=== PATIENT | male | born 1970 | race Caucasian/White ===

== ENCOUNTER 2017-01-26 17:45 | Inpatient (IN) | payer OTHER ==
--- NOTE | 2017-01-26 17:52 | PDOC ---
Rapid Medical Evaluation Time Seen by Provider: 01/26/17 17:48 Medical Evaluation: 01/26/17 17:49 I have performed a brief in-person evaluation of this patient. The patient presents with a chief complaint of: Chest pain w/ sob x several hrs. H/o HTN, HLD, [place] Pertinent physical exam findings: Appears pale and uncomfortable w/ what appears to be SVT to 208 on EKG I have ordered the following:Transferred immediately to main ED and EKG handed to Dr Gupta The patient will proceed to the ED for further evaluation. 01/26/17 17:56
[2017-01-26] MEDS ORDERED: ADENOSINE 6 MG/2 ML VIAL IVPUSH ONE (18:11)
--- NOTE | 2017-01-26 18:19 | PDOC ---
History of Present Illness - General History Source: Patient Exam Limitations: No Limitations <Dilma Mcintosh - Last Filed: 01/26/17 22:11> <Og Hernandez - Last Filed: 01/27/17 09:58> - General Chief Complaint: Chest Pain Stated Complaint: PALPITATIONS Time Seen by Provider: 01/26/17 17:48 - History of Present Illness Initial Comments: 01/26/17 22:12 "Patient is a 46 year old male with significant past medical history of CAD s/p stent 10 yrs ago, ?hx of pafib (not on any ac) who present to the ED with heart palpitations that began this evening. The patient reports running to catch a train with his son when his symptoms began. When he noticed his symptoms were persistent he subsequently checked his heart rate and noticed it to be fast so he decided to come to the ED. Patient denies any associated chest pain, shortness of breath, or dizziness.No recent illness, fevers/chills, diarrhea, melena, bpr. Pt notes giovanni the has been feeling fine the past few days and up until he was sprinting. he ontes he excercises regularly and always feels fine. Ctrs: Dr. Stepan Major Denies any drug use including stimulants +etoh abuse 2 glasses of wine daily" (Dilma Mcintosh) 01/27/17 09:57 above should read +etoh use - 2 glasses of wine daily not 'abuse' (Og Hernandez) Past History <Dilma Mcintosh - Last Filed: 01/26/17 22:11> - Past Medical History Cardiac Disorders: Yes (NE) COPD: No HTN: Yes Hypercholesterolemia: Yes - Suicide/Smoking/Psychosocial Hx Smoking History: Never smoked Information on smoking cessation initiated: No Hx Alcohol Use: No Drug/Substance Use Hx: No Substance Use Type: None <Og Hernandez - Last Filed: 01/27/17 09:58> - Past Medical History Allergies/Adverse Reactions: Allergies Allergy/AdvReac Type Severity Reaction Status Date / Time No Known Allergies Allergy Verified 01/26/17 17:51 Home Medications: Ambulatory Orders Aspirin [ASA -] 81 mg PO DAILY 01/26/17 Atorvastatin Ca [Lipitor] 40 mg PO DAILY 01/26/17 Enalapril Maleate 5 mg PO DAILY 01/26/17 Fluticasone/Salmeterol [Advair 250-50 Diskus] 1 each IH DAILY 01/26/17 Metoprolol Succinate [Toprol Xl -] 50 mg PO DAILY 01/26/17 [place]-3S/Dha/Epa/Fish Oil [Fish Oil 1,200 mg Softgel] 1 each PO DAILY 01/26/17 Review of Systems - Review of Systems All Other Systems: Reviewed and Negative <Dilma Mcintosh - Last Filed: 01/26/17 22:11> <Og Hernandez - Last Filed: 01/27/17 09:58> - Review of Systems Comments:: 01/26/17 22:13 "CONSTITUTIONAL: No reported: Fever, Chills, Diaphoresis, Generalized Weakness, Malaise, Loss of Appetite HEENT: No reported: Rhinorrhea, Nasal Congestion, Throat Pain, Throat Swelling, Difficulty Swallowing, Mouth Swelling, Ear Pain, Eye Pain, Visual Changes CARDIOVASCULAR: +Palpitations, Lightheadedness, No reported: Chest Pain, Syncope, Peripheral Edema RESPIRATORY: No reported: Cough, Shortness of Breath, SOB with Exertion, Orthopnea, Wheezing , Stridor, Hemoptysis GASTROINTESTINAL: No reported: Abdominal pain, Abdominal Distension, Nausea, Vomiting, Diarrhea, Constipation, Melena, Hematochezia GENITOURINARY: No reported: Dysuria, Frequency, Urgency, Hesitancy, Flank Pain, Genital Pain MUSCULOSKELETAL: No reported: Myalgia, Arthralgia, Joint Swelling, Back pain, Neck Pain SKIN: No reported: Rash, Itching, Pallor HEMEATOLOGIC/IMMUNOLOGIC: No reported: Easy Bleeding, Easy Bruising, Lymphadenopathy, Frequent infections ENDOCRINE: No reported: Unexplained Weight Gain, Unexplained Weight Loss, Heat Intolerance , Cold Intolerance NEUROLOGIC: No reported: Headache, Focal Weakness, Paresthesias, Vertigo, Lightheadedness, Unsteady Gait, Seizure, Mental Status Changes, Incontinence PSYCHIATRIC: No reported: Anxiety, Depression " (Dilma Mcintosh) *Physical Exam <Dilma Mcintosh - Last Filed: 01/26/17 22:11> <Og Hernandez - Last Filed: 01/27/17 09:58> - Vital Signs Last Vital Signs Temp Pulse Resp BP Pulse Ox 97.8 F 78 18 117/73 97 01/27/17 06:00 01/27/17 08:00 01/27/17 08:00 01/27/17 08:00 01/27/17 08:00 - Physical Exam Comments: 01/26/17 22:14 "GENERAL: The patient is awake, alert, and fully oriented, Nontoxic - in no acute distress. HEAD: Normocephalic, atraumatic. EYES: extraocular movements intact, sclera anicteric, conjunctiva clear. ENT: Normal voice, Moist mucous membranes. NECK: Normal range of motion, supple LUNGS: Breath sounds equal, clear to auscultation bilaterally. No wheezes, no rhonchi, no rales. HEART: Tachycardic with normal rhythm, without murmur, rub or gallop. ABDOMEN: Soft, nontender, normoactive bowel sounds. No guarding, no rebound.No CVA tenderness EXTREMITIES: Normal range of motion, no edema. No clubbing or cyanosis. No cords , erythema, or tenderness. NEUROLOGICAL: No facial assymetry, Normal speech, PSYCH: Normal mood, normal affect. SKIN: Warm, Dry, normal turgor, " (Dilma Mcintosh) Heart Score/ECG Review <Dilma Mcintosh - Last Filed: 01/26/17 22:11> <Og Hernandez - Last Filed: 01/27/17 09:58> - P and [place] Comment:: 01/26/17 18:42 EKG obtained at 17:51 Vent rate: 208bpm Wide QRS tachycardia Right bundle branch block, plus right ventricular hypertrophy Possible lateral infarct, age undetermined (Dilma Mcintosh) - ECG Impressions Comment:: 01/26/17 19:55 Twelve-lead EKG was performed and reviewed by me. ekg originaly performed at 17:51 wide complex tachycardia HR of 208 RBBB no old ekg for comparison Twelve-lead EKG was performed and reviewed by me. EKG performed at 1944 There is normal sinus rhythm with a normal rate. rate of 76 (Og Hernandez) ED Treatment Course - LABORATORY CBC & Chemistry Diagram: 01/26/17 18:00 01/26/17 18:00 <Dilma Mcintosh - Last Filed: 01/26/17 22:11> - LABORATORY CBC & Chemistry Diagram: 01/26/17 18:00 01/26/17 18:00 <Og Hernandez - Last Filed: 01/27/17 09:58> - ADDITIONAL ORDERS Additional order review: 01/26/17 18:00 RBC 4.79 MCV 92.0 MCHC 34.6 RDW 13.5 MPV 9.1 Neutrophils % 74.5 Lymphocytes % 17.3 Monocytes % 6.9 Eosinophils % 1.0 Basophils % 0.3 - Medications Given in the ED: ED Medications Discontinued Medications Generic Name Dose Route Start Last Admin Trade Name Domitila PRN Reason Stop Dose Admin Aspirin 325 mg 01/27/17 03:06 01/27/17 03:05 Ecotrin - PO 01/27/17 03:07 325 mg ONCE ONE Administration Heparin Sodium (Porcine) 5,000 unit 01/27/17 03:15 01/27/17 03:15 Heparin - IVPUSH 01/27/17 03:16 5,000 unit ONCE ONE Administration Amiodarone HCl 150 mg/ 100 mls @ 618 mls/hr 01/26/17 18:29 01/26/17 18:39 Dextrose IVPB 01/26/17 18:38 618 mls/hr ONCE ONE Administration Protocol Amiodarone HCl 150 mg/ 100 mls @ 618 mls/hr 01/26/17 18:45 01/26/17 18:55 Dextrose IVPB 01/26/17 18:54 618 mls/hr ONCE ONE Administration Protocol Lidocaine 2,000 mg in 500 mls @ 15 mls/hr 01/26/17 20:00 01/26/17 22:21 Xylocaine 0.4% Premix Ivpb - IV Not Given TITR BOB Protocol 1 MG/MIN Lidocaine HCl 100 mg 01/26/17 19:46 01/26/17 19:47 Xylocaine 2% INF 01/26/17 19:47 100 mg NOW ONE Administration Medical Decision Making <Dilma Mcintosh - Last Filed: 01/26/17 22:11> <Og Hernandez - Last Filed: 01/27/17 09:58> - Medical Decision Making 01/26/17 18:30 6:05pm Phone call placed to Dr. Stepan Major's answering service, awaiting call back. 6:08pm Call returned by Dr. Cortes, Dr. Major's associate. Case was discussed. ( [email or web address]) 01/26/17 18:48 46y M hx of CAD w stent 10 years ago, present with palptiations w/o chest pain, wsa sprinting to the train station and was felt palpitations/lightheaded took his HR at home and was elevated and would not go down. pt denies any cp, sob, diaprehosis, leg swelling. was fine prior to running to the train station ekg shows vt vs svt w abberency but in light of CAD and risk of structural heart disease/scarring higher suspicion of VT discussed with dr. corets who is covering for dr. quiroga (his track man) she does not have access to his records - i talked to dr. daniel (track man) who agrees treating as VT and agrees w/ amiodarone boluses and amio drip. pts mentating normally bp is stable (normal) no cp/diarpehosis pt has a zoll with defibrillator pads on his chest incase we need defibrillation 01/26/17 19:47 no response to 2 boluses of amio 150 and amio gtt d/w dr. daniel who recommends lidocaine - pt given lido with breaking of vt into what apepars to be NSR on monitor and improvement of his palptiations/lighheadedness. anticipate icu admission labs reviewed unremarkble trop neg x 1 01/26/17 19:54 repeat ekg is NSR no signs of AMI on ekg 01/26/17 21:[address] leon (hospitalist) agree with admission to ICU with lido gtt pt currently asypmtomatic Case discussed in detail with admitting physician including history, physical exam and ancillary studies. Admitting physician has assumed care for the patient, will follow all pending diagnostics and will complete the evaluation and treatment. CRITICAL CARE DOCUMENTATION: I spent ~110 minutes of Critical Care time, excluding separately billable procedures, involving high complexity decision making to assess, manipulate and support vital system function(s) to treat single or multiple vital organ system failure and/or to prevent further life threatening deterioration of the patient' s condition. (Og Hernandez) *DC/Admit/Observation/Transfer <Dilma Mcintosh - Last Filed: 01/26/17 22:11> - Discharge Dispostion Admit: Yes <Og Hernandez - Last Filed: 01/27/17 09:58> Diagnosis at time of Disposition: Ventricular tachycardia - Discharge Dispostion Condition at time of disposition: Critical - Attestations Scribe Attestion: 01/26/17 18:32 Documentation prepared by Dilma Mcintosh, acting as medical affairs specialist for Og Hernandez MD. (Dilma Mcintosh)
[2017-01-26] MEDS ORDERED: AMIODARONE HCL INJECTION 150 MG in DEXTROSE 5%-WATER - 97 ML IVPB ONE ×2 (18:29→18:45)
[2017-01-26 18:30] LABS: BASOPHIL 0.3 % (0-2.0); MCH 31.9 pg (25.7-33.7); MCHC 34.6 g/dl (32.0-35.9); MEAN PLT VOLUME 9.1 fl (7.5-11.1); NEUTROPHILS 74.5 % (42.8-82.8); PLATELET COUNT 225 K/MM3 (134-434); RDW 13.5 % (11.9-15.9); WHITE BLOOD COUNT 8.6 K/mm3 (4.0-10.0)
[2017-01-26] MEDS ORDERED: AMIODARONE HCL 150 MG/3 ML VIAL ONE ×4 (18:30→21:12)
[2017-01-26 18:46] LABS: INR 1.09 (0.82-1.09); PROTHROMBIN TIME (PATIENT) 12.3 SEC (9.98-11.88)
[2017-01-26 18:57] LABS: ALBUMIN 3.9 g/dl (3.4-5.0); ANION GAP 7 (8-16); BILIRUBIN,TOTAL 0.8 mg/dL (0.2-1.0); CALCIUM 8.8 mg/dL (8.5-10.1); CO2 29 mmol/L (21-32); CREATININE 0.9 mg/dL (0.7-1.3); GLUCOSE,RANDOM 129 mg/dL (74-106); SGOT/AST 24 U/L (15-37); SGPT/ALT 66 U/L (12-78); TOT PROT 7.1 g/dl (6.4-8.2)
[2017-01-26 18:59] LABS: ALK PHOS 74 U/L (45-117); CPK 132 IU/L (39-308); TROPONIN I 0.05 ng/ml (0.00-0.05)
[2017-01-26] MEDS: AMIODARONE HCL INJECTION 450 MG in DEXTROSE 5%-WATER - 241 ML IVPB SCH (19:09)
[2017-01-26] MEDS ORDERED: LIDOCAINE 0.4%/D5W IVPB 250ML BAG IVPB ONE (19:25)
[2017-01-26] MEDS ORDERED: RAPID SEQUENCE INTUBATION KIT NR ONE (19:29)
[2017-01-26] MEDS ORDERED: LIDOCAINE HCL 2% (50ML VIAL) INF ONE (19:46)
[2017-01-26] MEDS ORDERED: LIDOCAINE 0.4% PREMIX IVPB 2,000 MG/500 ML INFUS..BTL IV SCH (20:00)
[2017-01-26] MEDS ORDERED: LIDOCAINE 0.4% PREMIX IVPB 2,000 MG/500 ML INFUS..BTL ONE (20:40)
[2017-01-26] MEDS ORDERED: MUPIROCIN 2% TOPICAL OINTMENT FOR DECOLONIZATION NS SCH (22:00)
[2017-01-26] MEDS ORDERED: CHLORHEXIDINE GLUCONATE 4% CLEANSER FOR DECOLONIZATION TP SCH (22:00)
--- NOTE | 2017-01-26 22:02 | HP ---
CHIEF COMPLAINT: palpitations PCP: Dr. Oneill part of [facility] practice [phone] HISTORY OF PRESENT ILLNESS: 46 yr old man with hx of [place], HLD, presents to the ED due to persistent palpitations and not feeling well since 4pm Sunday afternoon. He and his son watched a game in the city and ran several [place]. During the 45 minute train ride back to his home he felt like his tachycardia from the running did not cease, once at home at 4:45 he continued to generalized malaise and presented to the ED at 5pm where he was found to be in V -tach. Prior to running for the train he was in his usual state of health. 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 earlier this year, in [place], he had an episode of Afib for which he under a nuclear test - told everything was normal, and had a stress echo in June 2016 which showed the known scar defect but to new areas of hypokinesis. ER course was notable for: (1) amiodarone [id number] (2)lidocaine (3) amiodarone drip Recent Travel: went to [place] 2 months ago PAST MEDICAL HISTORY: [place] at age 36 HLD PAST SURGICAL HISTORY: denies Social History: eats a vegetarian diet with fish and dairy Smoking:denies Alcohol:socially Drugs: denies Family History: family history of hyperlipidemia, denies famiyl hx of early NJ or CVA Allergies was allergic to cats 10 yrs ago, has occasional seasonal allergies that improve with advair No Known Allergies Allergy (Verified 01/26/17 17:51) HOME MEDICATIONS: Home Medications Medication Instructions Recorded Aspirin [ASA -] 81 mg PO DAILY 01/26/17 Atorvastatin Ca [Lipitor] 40 mg PO DAILY 01/26/17 Enalapril Maleate 5 mg PO DAILY 01/26/17 Fluticasone/Salmeterol [Advair 1 each IH DAILY 01/26/17 250-50 Diskus] Metoprolol Tartrate 50 mg PO DAILY 01/26/17 [place]-3S/Dha/Epa/Fish Oil [Fish 1 each PO DAILY 01/26/17 Oil 1,200 mg Softgel] REVIEW OF SYSTEMS CONSTITUTIONAL: Absent: fever, chills, diaphoresis, generalized weakness, malaise, loss of appetite, weight change HEENT: Absent: rhinorrhea, nasal congestion, throat pain, throat swelling, difficulty swallowing, mouth swelling, eye pain, visual changes CARDIOVASCULAR: Present: palpitations Absent: chest pain, syncope, irregular heart rate, lightheadedness, peripheral edema RESPIRATORY: Absent: cough, shortness of breath, dyspnea with exertion, orthopnea, wheezing, stridor, hemoptysis GASTROINTESTINAL: Absent: abdominal pain, abdominal distension, nausea, vomiting, diarrhea, constipation, melena, hematochezia GENITOURINARY: Absent: dysuria, frequency, urgency, hesitancy, hematuria, flank pain, genital pain MUSCULOSKELETAL: Absent: myalgia, arthralgia, joint swelling, back pain, neck pain SKIN: Absent: rash, itching, pallor HEMATOLOGIC/IMMUNOLOGIC: Absent: easy bleeding, easy bruising, lymphadenopathy, frequent infections ENDOCRINE: Absent: unexplained weight gain, unexplained weight loss, heat intolerance, cold intolerance NEUROLOGIC: Absent: headache, focal weakness or paresthesias, dizziness, unsteady gait, seizure, mental status changes, bladder or bowel incontinence PHYSICAL EXAMINATION Vital Signs - 24 hr 01/26/17 01/26/17 01/26/17 17:52 18:19 19:09 Temperature 0 F L Pulse Rate 208 H Pulse Rate [ 180 H Apical] Respiratory 24 18 Rate Blood Pressure 0/0 Blood Pressure 92/70 [Right Arm] O2 Sat by Pulse 0 L 100 100 Oximetry (%) 01/26/17 01/26/17 01/26/17 19:48 20:49 21:41 Temperature Pulse Rate Pulse Rate [ 75 75 74 Apical] Respiratory 14 18 Rate Blood Pressure Blood Pressure 89/69 113/94 120/90 [Right Arm] O2 Sat by Pulse 99 99 99 Oximetry (%) GENERAL: Awake, alert, and fully oriented, in no acute distress. HEAD: Normal with no signs of trauma. EYES: Pupils equal, round and reactive to light, extraocular movements intact, sclera anicteric, conjunctiva clear. No lid lag. EARS, NOSE, THROAT: Ears normal, nares patent, oropharynx clear without exudates. Moist mucous membranes. NECK: Normal range of motion, supple without lymphadenopathy, JVD, or masses. LUNGS: Breath sounds equal, clear to auscultation bilaterally. No wheezes, and no crackles. No accessory muscle use. HEART: Regular rate and rhythm, normal S1 and S2 without murmur, rub or gallop. ABDOMEN: Soft, nontender, not distended, normoactive bowel sounds, no guarding, no rebound, no masses. No hepatomegaly or splenomegaly. MUSCULOSKELETAL: Normal range of motion at all joints. No bony deformities or tenderness. No CVA tenderness. UPPER EXTREMITIES: 2+ radial pulses, warm, well-perfused. No cyanosis. No clubbing. No peripheral edema. LOWER EXTREMITIES: 2+ dp pulses, warm, well-perfused. No calf tenderness. No peripheral edema. NEUROLOGICAL: Cranial nerves II-XII intact. Normal speech. Normal gait. facial symmetry, 5/5 in biceps/triceps/shoulder shrug,hip extension, knee extension/ flexion, dorsi-and planter flexion b/l. PSYCHIATRIC: Cooperative. Good eye contact. Appropriate mood and affect. SKIN: Warm, dry, normal turgor, no rashes or lesions noted, normal capillary refill. patch of dry scaly skin with mild erythema centrally in posterior ankle of right foot. Laboratory Results - last 24 hr 01/26/17 01/26/17 01/26/17 18:00 18:00 18:00 WBC 8.6 RBC 4.79 Hgb 15.3 Hct 44.1 MCV 92.0 MCH 31.9 MCHC 34.6 RDW 13.5 Plt Count 225 MPV 9.1 Neutrophils % 74.5 Lymphocytes % 17.3 Monocytes % 6.9 Eosinophils % 1.0 Basophils % 0.3 PT with INR INR Sodium 140 Potassium 4.4 Chloride 104 Carbon Dioxide 29 Anion Gap 7 L BUN 19 H Creatinine 0.9 Creat Clearance w eGFR > 60 Random Glucose 129 H Calcium 8.8 Magnesium Total Bilirubin 0.8 AST 24 ALT 66 Alkaline Phosphatase 74 Creatine Kinase 132 Troponin I 0.05 B-Natriuretic Peptide 631.69 H Total Protein 7.1 Albumin 3.9 TSH 01/26/17 01/26/17 01/26/17 18:00 18:00 18:00 WBC RBC Hgb Hct MCV MCH MCHC RDW Plt Count MPV Neutrophils % Lymphocytes % Monocytes % Eosinophils % Basophils % PT with INR 12.30 H INR 1.09 Sodium Potassium Chloride Carbon Dioxide Anion Gap BUN Creatinine Creat Clearance w eGFR Random Glucose Calcium Magnesium 2.0 Total Bilirubin AST ALT Alkaline Phosphatase Creatine Kinase Troponin I B-Natriuretic Peptide Total Protein Albumin TSH 2.25 ASSESSMENT/PLAN: 46 yr old man with hx of [place] presents with palpitations found to be in V-tach admitted to the ICU for further management. #Ventricular tachycardia - due to arterial occlusion vs eletrical dysfunction due to previous [place] scar, TSH wnl, unlikely to be from thyroid dysfunction, lipid panel, hemoglob A1C to r/o DM or uncontrolled HLD causing re-occlusion - ICU monitoring with defibrillator pads in place with continous cardiac monitoring - amiodarone 0.5/kg/hr - increase home medication metoprolol from 50mg to 75mg for further rate controlled - trend troponins, mg, phos - Dr. Melara consulted for cardiology, case discussed - patient will be re- evaluated for possible transfer to [facility] in the morning, given elevated troponins and new st-changes in lateral leads which could be from the v-tach episode or possible new [place], pt was placed on heparin drip + ASA overnight. 's service called to update. #HLD - 40mg po daily atrovastatin #HTN - enalipril 5mg po daily #diet:vegetarian #DVT: heparin drip Visit type - Emergency Visit Emergency Visit: Yes ED Registration Date: 01/26/17 Care time: The patient presented to the Emergency Department on the above date and was hospitalized for further evaluation of their emergent condition. - New Patient This patient is new to me today: Yes Date on this admission: 01/26/17 - Critical Care Critical Care patient: Yes Total Critical Care Time (in minutes): 40 Critical Care Statement: The care of this patient involved high complexity decision making to prevent further life threatening deterioration of the patient 's condition and/or to evaluate & treat vital organ system(s) failure or risk of failure.
--- NOTE | 2017-01-26 23:14 | PN ---
Teaching Attending Note Name of Resident: Willis Crouch ATTENDING PHYSICIAN STATEMENT I saw and evaluated the patient. I reviewed the resident's note and discussed the case with the resident. I agree with the resident's findings and plan as documented. SUBJECTIVE: OBJECTIVE: aaox3 s1 and S2 rrr no edema lungs CTA abdomen soft non-tender ASSESSMENT AND PLAN: this is a 46 y/o male with extensive hx of cardiac disease with a stent placed at the age of 36, family history of dyslipdemia, and HTN, presented to the hospital complaining of palpiation, patient stated that he felt the palpitations after he left a game in the city, after he sprinted to get the train but kept on having the palpitations until he got home roughly an hour later. the palitations didnt resolve and the patient had to come to the hospital. the patient stated that he had history of scaring in the heart that is according to his steam setter. patient denied any chest pain, associated with his symptoms. he was doing well until today. ECG showed wide complex ventricular tachycardia with AV dissociation pt received 300mg Aiodarone that didnt break the tachycardia then he got 100mg of IV lidocaine that eventually terminated the tachycardia. plan: - admit patient to the ICU - start the patient on amiodarone drip at 0.5mg/kg/hr (according to cardiology) - c/w statin - increase metoprolol succinate xl to 75mg daily - cardiology will follow up with the patient in the morning for possible transfer to a different hospital - keep patient on defibrilator pads
[2017-01-27 02:07] VITALS: BMI 67.8
[2017-01-27 02:19] LABS: TROPONIN I 2.79 ng/ml (0.00-0.05)
--- NOTE | 2017-01-27 02:39 | CONSULT ---
Consult - text type - Consultation Consultation Note: PULM/CCM Pt seen and examined in ICU Consult Note CC: palpitations HPI: 46 y/o man with hx of CAD (single stent placed ~10 yrs ago, episode of afib in Mar/Apr of this year w/o intervention, reassuring treadmill stress and nuclear study in May) who today presents to hospital with wide complex tachycardia. Pt was in [place] and feeling well when today he abruptly ran to catch a train adn then after felt fatigue and elevated heart rate which didnt improve with rest prompting coming to hospital. He did not loose consciousness, have clear chest pain, shortness of breath, or dizziness. In ED pt was afebrile , normotensive, tachy to 200, EKG with wide complex VT vs SVT with aberrancy. He was not in acute distress. He was bolused amiodarone without clear affect. He was then given 100mg of lidocaine with conversion to NSR. He was started on an amio gtt. CBC and CMP were unrevealing, initial troponin was negative, BNP was 600. Pt transferred to ICU on amio gtt. Repeat trop was 2.7, CKMB 23, CI 10. EKG on arrival to ICU, without acute MERVIN, but with ? qWave II, III, AVF, TW flattening V5 and 6 ( we have no previous EKG for comparison) Pt relates some chest heaviness but no chest pain. VS stable. Cardiology was contacted, call out to Dr Melara being done by hospitalist, awaiting recs (3am) Asa 325 given, Hep bolus and gtt started. 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, near daily ETOH, no tob Home Medications Medication Instructions Recorded Aspirin [ASA -] 81 mg PO DAILY 01/26/17 Atorvastatin Ca [Lipitor] 40 mg PO DAILY 01/26/17 Enalapril Maleate 5 mg PO DAILY 01/26/17 Fluticasone/Salmeterol [Advair 1 each IH DAILY 01/26/17 250-50 Diskus] Metoprolol Succinate [Toprol Xl -] 50 mg PO DAILY 01/26/17 [place]-3S/Dha/Epa/Fish Oil [Fish 1 each PO DAILY 01/26/17 Oil 1,200 mg Softgel] Active Medications Atorvastatin Calcium (Lipitor -) 40 mg PO DAILY [facility] Chlorhexidine Gluconate (Hibiclens For Decolonization -) 1 applic TP HS [facility] Enalapril Maleate (Vasotec -) 5 mg PO DAILY [facility] Heparin Sodium (Porcine) (Heparin -) 1,000 unit IVPUSH PRN PRN PRN Reason: Heparin Heparin Sodium (Porcine) (Heparin -) 5,000 unit IVPUSH PRN PRN PRN Reason: Heparin Amiodarone HCl 450 mg/ (Dextrose) 250 mls @ 16.66 mls/hr IVPB TITR BOB; 0.5 MG/ MIN PRN Reason: Protocol Last Titration: 01/26/17 21:20 Dose: 0.5 mg/min, 16.66 mls/hr Heparin Sodium/Dextrose (Heparin Infusion -) 25,000 units in 500 mls @ 20 mls/ hr IVPB TITR BOB; 1,000 UNITS/HR PRN Reason: Protocol Influenza Virus Vaccine Quadrival (Flulaval Quad [id number]) 60 mcg IM .ONCE ONE Stop: 01/27/17 09:01 Metoprolol Succinate (Toprol Xl -) 75 mg PO DAILY [facility] Mupirocin (Bactroban Ointment (For Decolonization) -) 1 applic NS BID [facility] Stop: 02/01/17 09:59 Pneumococcal Polyvalent Vaccine (Pneumovax -) 0.5 ml IM .ONCE ONE Stop: 01/27/17 09:01 Vital Signs Temp 0 F L 01/26/17 17:52 Pulse 70 01/26/17 23:50 Resp 15 01/26/17 23:50 BP 121/91 01/26/17 23:50 Pulse Ox 100 01/26/17 23:50 Intake & Output 01/26/17 01/26/17 01/27/17 11:59 23:59 11:59 Weight 202.3 kg Other: Voiding Method Toilet Height 5 ft 8 in Body Mass Index (BMI) 67.8 Weight Measurement Method Built in [facility] Weight Measurement Method Est/Stated by Patient CBCD WBC 8.6 K/mm3 (4.0-10.0) 01/26/17 18:00 RBC 4.79 M/mm3 (4.00-5.60) 01/26/17 18:00 Hgb 15.3 GM/dL (11.7-16.9) 01/26/17 18:00 Hct 44.1 % (35.4-49) 01/26/17 18:00 MCV 92.0 fl (80-96) 01/26/17 18:00 MCHC 34.6 g/dl (32.0-35.9) 01/26/17 18:00 RDW 13.5 % (11.9-15.9) 01/26/17 18:00 Plt Count 225 K/MM3 (134-434) 01/26/17 18:00 MPV 9.1 fl (7.5-11.1) 01/26/17 18:00 CMP Sodium 140 mmol/L (136-145) 01/26/17 18:00 Potassium 4.4 mmol/L (3.5-5.1) 01/26/17 18:00 Chloride 104 mmol/L (98-107) 01/26/17 18:00 Carbon Dioxide 29 mmol/L (21-32) 01/26/17 18:00 Anion Gap 7 (8-16) L 01/26/17 18:00 BUN 19 mg/dL (7-18) H 01/26/17 18:00 Creatinine 0.9 mg/dL (0.7-1.3) 01/26/17 18:00 Creat Clearance w eGFR > 60 (>60) 01/26/17 18:00 Calcium 8.8 mg/dL (8.5-10.1) 01/26/17 18:00 Total Bilirubin 0.8 mg/dL (0.2-1.0) 01/26/17 18:00 AST 24 U/L (15-37) 01/26/17 18:00 ALT 66 U/L (12-78) 01/26/17 18:00 Alkaline Phosphatase 74 U/L (45-117) 01/26/17 18:00 Total Protein 7.1 g/dl (6.4-8.2) 01/26/17 18:00 Albumin 3.9 g/dl (3.4-5.0) 01/26/17 18:00 Troponin, BNP 01/26/17 01/26/17 01/27/17 18:00 18:00 01:14 Troponin I 0.05 2.79 H* D B-Natriuretic Peptide 631.69 H PE: Vital Signs Temp 0 F L 11/24/17 17:52 Pulse 70 01/26/17 23:50 Resp 15 01/26/17 23:50 BP 121/91 01/26/17 23:50 Pulse Ox 100 01/26/17 23:50 Intake & Output 01/26/17 01/26/17 01/27/17 11:59 23:59 11:59 Weight 202.3 kg Other: Voiding Method Toilet Height 5 ft 8 in Body Mass Index (BMI) 67.8 Weight Measurement Method Built in [facility] Weight Measurement Method Est/Stated by Patient EKG reviewed as above: inital VT vs SVT with aberrancy, now NSR with possible new qWave II,III,AVF and tw flattening in lateral CXR: clear, no infiltrate. Gen: awake, alert, anxious, no distress HEENT: p/w/d, no diaphoresis, no jvd, PERRL, EOMI PULM: Clear, no wheezes, no distress CV: RRR, no m/r/g, regular s1s2, non-displaced PMI ABD: soft, NT, ND, + BS EXT: w/w/p, no edema, 2+ pulses Neuro: non-focal A/ 46 y/o man with hx of CAD now with ACS w/ + trop, elevated BNP, wide complex tachycardia now resolved P/ -cardiology following, recs appreciated, likely cardiac cath being coordinated. -asa load with 325 -therapeutic heparin gtt -serial troponin and EKG -TTE -cont statin and BB therapy Suggest transfer for cardiac cath Samson Phillips ACNP [id number]
[2017-01-27] MEDS ORDERED: HEPARIN NA (PORCINE) 5,000 UNITS/ML 1ML VIAL IVPUSH PRN ×2 (03:04)
[2017-01-27] MEDS ORDERED: ASPIRIN 325 MG ENTERIC COATED TABLET (FP) PO ONE (03:06)
[2017-01-27] MEDS ORDERED: HEPARIN - 25,000 UNIT in SODIUM CHLORIDE 495 ML IV SCH (03:15)
[2017-01-27] MEDS ORDERED: HEPARIN NA (PORCINE) 5,000 UNITS/ML 1ML VIAL IVPUSH ONE (03:15)
[2017-01-27] MEDS ORDERED: HEPARIN INFUSION - 25,000 UNITS/500 ML INFUS.BAG IVPB SCH (03:15)
[2017-01-27] MEDS ORDERED: ASPIRIN COATED 81 MG TABLET.EC ONE (03:22)
[2017-01-27 06:52] LABS: INR 1.16 (0.82-1.09); PROTHROMBIN TIME (PATIENT) 13.1 SEC (9.98-11.88)
[2017-01-27 06:53] LABS: CHOLESTEROL 128 mg/dL (50-200)
[2017-01-27 07:02] LABS: PHOSPHOROUS 3.7 mg/dL (2.5-4.9)
[2017-01-27 07:19] LABS: TROPONIN I 4.28 ng/ml (0.00-0.05)
--- NOTE | 2017-01-27 07:55 | PN ---
Physical Exam: SUBJECTIVE: Patient seen and examined Patient is feeling better with no further chest pain. Continues on Amio drip. States that he has one stent, 10 yrs ago with Fhx of CAD. OBJECTIVE: Vital Signs Temperature 97.8 F 01/27/17 06:00 Pulse Rate 67 01/27/17 06:00 Respiratory Rate 18 01/27/17 06:00 Blood Pressure 119/85 01/27/17 06:00 O2 Sat by Pulse Oximetry (%) 100 01/26/17 23:50 GENERAL: The patient is awake, alert, and fully oriented, in no acute distress.lying in bed comfortably, slightly anxious. HEAD: Normal with no signs of trauma. EYES: PERRL, extraocular movements intact, sclera anicteric, conjunctiva clear. No ptosis. ENT: Ears normal, nares patent, oropharynx clear without exudates, moist mucous membranes. NECK: Trachea midline, full range of motion, supple. LUNGS: Breath sounds equal, clear to auscultation bilaterally, no wheezes, no crackles, no accessory muscle use. HEART: Regular rate and rhythm, S1, S2 without murmur, rub or gallop. ABDOMEN: Soft, nontender, nondistended, normoactive bowel sounds, no guarding, no rebound, no hepatosplenomegaly, no masses. EXTREMITIES: 2+ pulses, warm, well-perfused, no edema. NEUROLOGICAL: Cranial nerves II through XII grossly intact. Normal speech, gait not observed. PSYCH: Normal mood, normal affect. SKIN: Warm, dry, normal turgor, no rashes or lesions noted CBCD WBC 8.6 K/mm3 (4.0-10.0) 01/26/17 18:00 RBC 4.79 M/mm3 (4.00-5.60) 01/26/17 18:00 Hgb 15.3 GM/dL (11.7-16.9) 01/26/17 18:00 Hct 44.1 % (35.4-49) 01/26/17 18:00 MCV 92.0 fl (80-96) 01/26/17 18:00 MCHC 34.6 g/dl (32.0-35.9) 01/26/17 18:00 RDW 13.5 % (11.9-15.9) 01/26/17 18:00 Plt Count 225 K/MM3 (134-434) 01/26/17 18:00 MPV 9.1 fl (7.5-11.1) 01/26/17 18:00 CMP Sodium 140 mmol/L (136-145) 01/26/17 18:00 Potassium 4.4 mmol/L (3.5-5.1) 01/26/17 18:00 Chloride 104 mmol/L (98-107) 01/26/17 18:00 Carbon Dioxide 29 mmol/L (21-32) 01/26/17 18:00 Anion Gap 7 (8-16) L 01/26/17 18:00 BUN 19 mg/dL (7-18) H 01/26/17 18:00 Creatinine 0.9 mg/dL (0.7-1.3) 01/26/17 18:00 Creat Clearance w eGFR > 60 (>60) 01/26/17 18:00 Random Glucose 129 mg/dL (74-106) H 01/26/17 18:00 Calcium 8.8 mg/dL (8.5-10.1) 01/26/17 18:00 Total Bilirubin 0.8 mg/dL (0.2-1.0) 01/26/17 18:00 AST 24 U/L (15-37) 01/26/17 18:00 ALT 66 U/L (12-78) 01/26/17 18:00 Alkaline Phosphatase 74 U/L (45-117) 01/26/17 18:00 Total Protein 7.1 g/dl (6.4-8.2) 01/26/17 18:00 Albumin 3.9 g/dl (3.4-5.0) 01/26/17 18:00 CARDIAC ENZYMES Creatine Kinase 266 IU/L (39-308) 01/27/17 05:05 Troponin I 4.28 ng/ml (0.00-0.05) H* D 01/27/17 05:05 Current Medications Generic Name Dose Route Start Last Admin Trade Name Freq PRN Reason Stop Dose Admin Atorvastatin Calcium 40 mg 01/27/17 10:00 Lipitor - PO DAILY [facility] Chlorhexidine Gluconate 1 applic 01/26/17 22:00 01/27/17 05:49 Hibiclens For Decolonization - TP Not Given HS [facility] Enalapril Maleate 5 mg 01/27/17 10:00 Vasotec - PO DAILY [facility] Heparin Sodium (Porcine) 1,000 unit 01/27/17 03:04 Heparin - IVPUSH PRN PRN Heparin Heparin Sodium (Porcine) 5,000 unit 01/27/17 03:04 Heparin - IVPUSH PRN PRN Heparin Amiodarone HCl 450 mg/ 250 mls @ 16.66 mls/hr 01/26/17 19:00 01/26/17 21:20 Dextrose IVPB 0.5 mg/min TITR BOB 16.66 mls/hr Protocol Titration 0.5 MG/MIN Heparin Sodium/Dextrose 25,000 units in 500 mls @ 20 mls/hr 01/27/17 03:15 03:15 Heparin Infusion - IVPB 1,000 units/hr TITR BOB 20 mls/hr Protocol Administration 1,000 UNITS/HR Influenza Virus Vaccine Quadrival 60 mcg 01/27/17 09:00 Flulaval Quad [id number] IM 01/27/17 09:01 .ONCE ONE Metoprolol Succinate 75 mg 01/27/17 10:00 Toprol Xl - PO DAILY [facility] Mupirocin 1 applic 01/27/17 10:00 Bactroban Ointment (For Decolonization) - NS 02/01/17 09:59 BID [facility] Pneumococcal Polyvalent Vaccine 0.5 ml 01/27/17 09:00 Pneumovax - IM 01/27/17 09:01 .ONCE ONE Home Medications Medication Instructions Recorded Aspirin [ASA -] 81 mg PO DAILY 01/26/17 Atorvastatin Ca [Lipitor] 40 mg PO DAILY 01/26/17 Enalapril Maleate 5 mg PO DAILY 01/26/17 Fluticasone/Salmeterol [Advair 1 each IH DAILY 01/26/17 250-50 Diskus] Metoprolol Succinate [Toprol Xl -] 50 mg PO DAILY 01/26/17 [place]-3S/Dha/Epa/Fish Oil [Fish 1 each PO DAILY 01/26/17 Oil 1,200 mg Softgel] CXR: No acute pathology ASSESSMENT AND PLAN: Patient is a 46 y/o male with extensive cardiac hx s/p stent placement at the age of 36, family history of dyslipdemia, and HTN, presented to the hospital complaining of having palpitation. Patient stated that he felt the palpitations after he left a game in the city and continued to have palpitations, came to ED for further treatment and evaluation.Patient was given Amiodarone 300mg without any resolution of the VT, then patient received 100mg of IV lidocaine that eventually terminated the tachycardia. Presented with ECG showed wide complex ventricular tachycardia with AV dissociation, repeat EKG NSR. # s/p Wide complex Tachycardia: in ICU , on amiodarone drip at 0.5mg/kg/hr ( according to cardiology) , continue statin , continue increased dose metoprolol succinate xl to 75mg daily, cardio consult appreciated and discussed with , continue to to keep the defibrilator pads, patient is arranged to be transferred to [facility] pres[facility]. today for rn labor delivery. today , with possibility of EP studies . On Heparin drip continue. dr. Melara arranged the Transfer at [facility] and spoke with Dr. Josué Rose of [facility]. And Discussed with Dr. Stepan Snowden of [facility] in [place] # Possible NTEMI /possible due to demand ischemia ; troponin 0.9--> 2.79-->4.6 on Heparin drip continue. aspirin, lipitor, check lipid panel. # Hx of CAD s/p PCI/stent to LAD # HTN continue meds Metoprolol and Enalapril #hx of HLD continue Lipitor DVT px: Heparin drip Visit type - Emergency Visit Emergency Visit: Yes ED Registration Date: 01/26/17 Care time: The patient presented to the Emergency Department on the above date and was hospitalized for further evaluation of their emergent condition. - New Patient This patient is new to me today: Yes Date on this admission: 01/27/17 - Critical Care Critical Care patient: Yes Total Critical Care Time (in minutes): 35 Critical Care Statement: The care of this patient involved high complexity decision making to prevent further life threatening deterioration of the patient 's condition and/or to evaluate & treat vital organ system(s) failure or risk of failure.
[2017-01-27] MEDS ORDERED: ASPIRIN COATED 81 MG TABLET.EC PO SCH ×2 (08:15→08:45)
[2017-01-27] MEDS ORDERED: PNEUMOC 13-VAL CONJ-DIP CRM/PF 0.5 ML DISP.SYRIN IM ONE (09:00)
[2017-01-27] MEDS ORDERED: FLU VACCINE QUAD 60 MCG/0.5 ML (MDV 17-18) IM ONE (09:00)
[2017-01-27] MEDS ORDERED: PNEUMOCOCCAL 23 VACCINE 0.5 ML VIAL IM ONE (09:00)
--- NOTE | 2017-01-27 09:31 | CON.CARD ---
Consult Consult Specialty:: Cardiology Referred by:: Hospitalist Reason for Consultation:: Cardiac evaluation - History of Present Illness Chief Complaint: Wide complex tachycardia History of Present Illness: Patient is a 46 year old male with underlying history of coronary artery disease s/p PCI/stent 10 years ago in [place], underlying history of hypertension and hypercholesterolemia who was in his usual state of health until yesterday when he sprinted at the train station to catch a train and developed a wide complex rapid arrhythmia. ECG appeared either VT vs. SVT with aberrancy. He states that he may have had atrial fibrillation in the past, but he was not prescribed any anticoagulation and has remained in sinus rhythm. He had full cardiac work up with echocardiography and stress testing earlier. He denied chest pain or shortness of breath. He denied paroxysmal nocturnal dyspnea or orthopnea. He denied fever or chills. He denies headache or lightheadedness. He was given Amiodarone bolus and then drip and then was given Lidocaine gtt as well. Currently, he is in normal sinus rhythm with inferior and lateral infarct (previous ECG is not available at this time). He was also started on Heparin drip with elevation of troponin level. He remains asymptomatic in ICU. Cardiology consultation was called for further evaluation. - History Source History Provided By: Patient, Medical Record Limitations to Obtaining History: No Limitations - Past Medical History Cardio/Vascular: Yes: AFIB (Questionable), CAD, HTN, Hyperlipdemia Pulmonary: Yes: Asthma Endocrine: No: Diabetes Mellitus - Past Surgical History Past Surgical History: Yes: Stent - Alcohol/Substance Use Hx Alcohol Use: No History of Substance Use: reports: None - Smoking History Smoking history: Never smoked Have you smoked in the past 12 months: No Home Medications - Allergies Allergies/Adverse Reactions: Allergies Allergy/AdvReac Type Severity Reaction Status Date / Time No Known Allergies Allergy Verified 01/26/17 17:51 - Home Medications Home Medications: Ambulatory Orders Aspirin [ASA -] 81 mg PO DAILY 01/26/17 Atorvastatin Ca [Lipitor] 40 mg PO DAILY 01/26/17 Enalapril Maleate 5 mg PO DAILY 01/26/17 Fluticasone/Salmeterol [Advair 250-50 Diskus] 1 each IH DAILY 01/26/17 Metoprolol Succinate [Toprol Xl -] 50 mg PO DAILY 01/26/17 [place]-3S/Dha/Epa/Fish Oil [Fish Oil 1,200 mg Softgel] 1 each PO DAILY 01/26/17 Family Disease History - Family Disease History Other Family History: History of CAD Review of Systems - Review of Systems Constitutional: denies: Chills, Fever Cardiovascular: reports: Palpitations. denies: Chest Pain, Shortness of Breath Respiratory: denies: Cough, Hemoptysis, Orthopnea, PND, SOB, SOB on Exertion Gastrointestinal: denies: Abdominal Pain, Constipation, Diarrhea, Melena, Nausea , Rectal Bleeding, Vomiting Musculoskeletal: denies: Joint Pain Neurological: denies: Dizziness, Headache, Seizure, Syncope Vital Signs: Vital Signs Temperature 97.8 F 01/27/17 06:00 Pulse Rate 78 01/27/17 08:00 Respiratory Rate 18 01/27/17 08:00 Blood Pressure 117/73 01/27/17 08:00 O2 Sat by Pulse Oximetry (%) 97 01/27/17 08:00 Neck: Yes: Supple Respiratory: Yes: CTA Bilaterally Gastrointestinal: Yes: Normal Bowel Sounds, Soft. No: Tenderness Cardiovascular: Yes: Regular Rate and Rhythm JVD: No Carotid Bruit: No PMI: Non-Displaced Heart Sounds: Yes: S1, S2. No: Gallop Murmur: No: Systolic Murmur, Diastolic Murmur Edema: No - Other Data Labs, Other Data: CBC, BMP 01/26/17 18:00 01/26/17 18:00 INR, PTT INR 1.16 (0.82-1.09) H 01/27/17 05:05 Troponin, BNP 01/26/17 01/26/17 01/27/17 18:00 18:00 01:14 Troponin I 0.05 2.79 H* D B-Natriuretic Peptide 631.69 H 01/27/17 05:05 Troponin I 4.28 H* D B-Natriuretic Peptide Laboratory Results - last 24 hr 01/26/17 01/26/17 01/26/17 18:00 18:00 18:00 WBC 8.6 RBC 4.79 Hgb 15.3 Hct 44.1 MCV 92.0 MCH 31.9 MCHC 34.6 RDW 13.5 Plt Count 225 MPV 9.1 Neutrophils % 74.5 Lymphocytes % 17.3 Monocytes % 6.9 Eosinophils % 1.0 Basophils % 0.3 PT with INR INR Sodium 140 Potassium 4.4 Chloride 104 Carbon Dioxide 29 Anion Gap 7 L BUN 19 H Creatinine 0.9 Creat Clearance w eGFR > 60 Random Glucose 129 H Calcium 8.8 Phosphorus Magnesium Total Bilirubin 0.8 AST 24 ALT 66 Alkaline Phosphatase 74 Creatine Kinase 132 Creatine Kinase Index CK-MB (CK-2) Troponin I 0.05 B-Natriuretic Peptide 631.69 H Total Protein 7.1 Albumin 3.9 Triglycerides Cholesterol Total LDL Cholesterol HDL Cholesterol TSH 01/27/17 01/27/17 01/27/17 01:14 05:05 05:05 WBC RBC Hgb Hct MCV MCH MCHC RDW Plt Count MPV Neutrophils % Lymphocytes % Monocytes % Eosinophils % Basophils % PT with INR 13.10 H INR 1.16 H Sodium Potassium Chloride Carbon Dioxide Anion Gap BUN Creatinine Creat Clearance w eGFR Random Glucose Calcium Phosphorus 3.7 Magnesium 2.0 Total Bilirubin AST ALT Alkaline Phosphatase Creatine Kinase 220 Creatine Kinase Index 10.5 H* CK-MB (CK-2) 23.212 H Troponin I 2.79 H* D B-Natriuretic Peptide Total Protein Albumin Triglycerides Cholesterol Total LDL Cholesterol HDL Cholesterol TSH 01/27/17 01/27/17 05:05 05:05 WBC RBC Hgb Hct MCV MCH MCHC RDW Plt Count MPV Neutrophils % Lymphocytes % Monocytes % Eosinophils % Basophils % PT with INR INR Sodium Potassium Chloride Carbon Dioxide Anion Gap BUN Creatinine Creat Clearance w eGFR Random Glucose Calcium Phosphorus Magnesium Total Bilirubin AST ALT Alkaline Phosphatase Creatine Kinase 266 Creatine Kinase Index 10.7 H* CK-MB (CK-2) 28.483 H Troponin I 4.28 H* D B-Natriuretic Peptide Total Protein Albumin Triglycerides 58 Cholesterol 128 Total LDL Cholesterol 74 HDL Cholesterol 46 TSH Wide complex tachycardia - VT vs SVT with aberrancy Now Sinus rhythm with inferior and lateral infarct Ejection Fraction %: LVEF > or = 40 % Imaging - Results Chest X-ray: Report Reviewed EKG: Report Reviewed Problem List - Problems (1) SVT (supraventricular tachycardia) Code(s): I47.1 - SUPRAVENTRICULAR TACHYCARDIA (2) CAD (coronary artery disease) Code(s): I25.10 - ATHSCL HEART DISEASE OF [place] CORONARY ARTERY W/O ANG PCTRS Qualifiers: Coronary Disease-Associated Artery/Lesion type: [place] artery [place] vs. transplanted heart: [place] heart Associated angina: without angina Qualified Code(s): I25.10 - Atherosclerotic heart disease of [place] coronary artery without angina pectoris (3) History of percutaneous coronary intervention Code(s): Z98.890 - OTHER SPECIFIED POSTPROCEDURAL STATES (4) HTN (hypertension) Code(s): I10 - ESSENTIAL (PRIMARY) HYPERTENSION Qualifiers: Hypertension type: essential hypertension Qualified Code(s): I10 - Essential (primary) hypertension (5) Hypercholesterolemia Code(s): E78.00 - PURE HYPERCHOLESTEROLEMIA, UNSPECIFIED (6) Ventricular tachycardia Code(s): I47.2 - VENTRICULAR TACHYCARDIA Assessment/Plan 1. Wide complex arrhythmia - VT vs SVT with aberrancy currently in sinus rhythm 2. CAD s/p PCI/stent to LAD, angina pectoris 3. Hypertension 4. Hypercholesterolemia PLAN: 1. Continue Amiodarone for now and then decide whether to continue with PO if deemed to be VT 2. ASA 3. Continue Metoprolol and Enalapril 4. Continue Atorvastatin 5. Transfer to [facility] for cardiac catheterization +/- EP if clinically indicated 6. Assessment of LVEF would be needed for further recommendation Further plans are to follow Spoke with transfer center at [facility] and spoke with Dr. Josué Rose of [facility]. Discussed with Dr. Stepan Snowden of [facility] in [place] Saritha Turner MD
[2017-01-27] MEDS ORDERED: ATORVASTATIN CA 40 MG TABLET (FP) PO SCH (10:00)
[2017-01-27] MEDS ORDERED: ENOXAPARIN NA (PORCINE) 40 MG/0.4 ML DISP.SYRIN SQ SCH (10:00)
[2017-01-27] MEDS ORDERED: ASPIRIN 81 MG CHEWABLE TABLETS PO SCH (10:00)
[2017-01-27] MEDS ORDERED: METOPROLOL SUCCINATE 50 MG TAB.SR.24H (FP) PO SCH (10:00)
[2017-01-27] MEDS ORDERED: MUPIROCIN 2% TOPICAL OINTMENT FOR DECOLONIZATION NS SCH (10:00)
[2017-01-27] MEDS ORDERED: ENALAPRIL MALEATE 5 MG TABLET (FP) PO SCH (10:00)
[2017-01-27] MEDS: AMIODARONE HCL INJECTION 450 MG in DEXTROSE 5%-WATER - 241 ML IVPB SCH (12:33)
[2017-01-27 15:34] VITALS: TEMP 98.4
[2017-01-27 17:40] VITALS: BP 116/77; PULSE 71
--- NOTE | 2017-01-28 07:41 | DS ---
Physical Exam: SUBJECTIVE: Patient seen and examined Patient is being transferred to [facility] for cath.lab. Anxious looking. Has no chest pain or palpitations. OBJECTIVE: Vital Signs Period Temp Pulse Resp BP Sys/Madrigal Pulse Ox Last 24 Hr 98.4 F-99.2 F 70-78 12-23 109-132/72-81 97-97 PHYSICAL EXAM GENERAL: The patient is awake, alert, and fully oriented, in no acute distress.lying in bed comfortably, very anxious. HEAD: Normal with no signs of trauma. EYES: PERRL, extraocular movements intact, sclera anicteric, conjunctiva clear. No ptosis. ENT: Ears normal, nares patent, oropharynx clear without exudates, moist mucous membranes. NECK: Trachea midline, full range of motion, supple. LUNGS: Breath sounds equal, clear to auscultation bilaterally, no wheezes, no crackles, no accessory muscle use. HEART: Regular rate and rhythm, S1, S2 without murmur, rub or gallop. ABDOMEN: Soft, nontender, nondistended, normoactive bowel sounds, no guarding, no rebound, no hepatosplenomegaly, no masses. EXTREMITIES: 2+ pulses, warm, well-perfused, no edema. NEUROLOGICAL: Cranial nerves II through XII grossly intact. Normal speech, gait not observed. PSYCH: Normal mood, normal affect. SKIN: Warm, dry, normal turgor, no rashes or lesions noted LABS Laboratory Results - last 24 hr 01/27/17 01/27/17 01/27/17 05:05 05:05 10:35 PTT (Actin FS) 47.9 H Hemoglobin A1c % 5.1 Creatine Kinase Index 10.7 H* CK-MB (CK-2) 28.483 H CBCD WBC 8.6 K/mm3 (4.0-10.0) 01/26/17 18:00 RBC 4.79 M/mm3 (4.00-5.60) 01/26/17 18:00 Hgb 15.3 GM/dL (11.7-16.9) 01/26/17 18:00 Hct 44.1 % (35.4-49) 01/26/17 18:00 MCV 92.0 fl (80-96) 01/26/17 18:00 MCHC 34.6 g/dl (32.0-35.9) 01/26/17 18:00 RDW 13.5 % (11.9-15.9) 01/26/17 18:00 Plt Count 225 K/MM3 (134-434) 01/26/17 18:00 MPV 9.1 fl (7.5-11.1) 01/26/17 18:00 CMP Sodium 140 mmol/L (136-145) 01/26/17 18:00 Potassium 4.4 mmol/L (3.5-5.1) 01/26/17 18:00 Chloride 104 mmol/L (98-107) 01/26/17 18:00 Carbon Dioxide 29 mmol/L (21-32) 01/26/17 18:00 Anion Gap 7 (8-16) L 01/26/17 18:00 BUN 19 mg/dL (7-18) H 01/26/17 18:00 Creatinine 0.9 mg/dL (0.7-1.3) 01/26/17 18:00 Creat Clearance w eGFR > 60 (>60) 01/26/17 18:00 Random Glucose 129 mg/dL (74-106) H 01/26/17 18:00 Calcium 8.8 mg/dL (8.5-10.1) 01/26/17 18:00 Total Bilirubin 0.8 mg/dL (0.2-1.0) 01/26/17 18:00 AST 24 U/L (15-37) 01/26/17 18:00 ALT 66 U/L (12-78) 01/26/17 18:00 Alkaline Phosphatase 74 U/L (45-117) 01/26/17 18:00 Total Protein 7.1 g/dl (6.4-8.2) 01/26/17 18:00 Albumin 3.9 g/dl (3.4-5.0) 01/26/17 18:00 CARDIAC ENZYMES Creatine Kinase 266 IU/L (39-308) 01/27/17 05:05 Troponin I 4.28 ng/ml (0.00-0.05) H* D 01/27/17 05:05 Current Medications Generic Name Dose Route Start Last Admin Trade Name Freq PRN Reason Stop Dose Admin Atorvastatin Calcium 40 mg 01/27/17 10:00 Lipitor - PO DAILY BOB Chlorhexidine Gluconate 1 applic 11/24/17 22:00 01/27/17 05:49 Hibiclens For Decolonization - TP Not Given HS [facility] Enalapril Maleate 5 mg 01/27/17 10:00 Vasotec - PO DAILY [facility] Heparin Sodium (Porcine) 1,000 unit 01/27/17 03:04 Heparin - IVPUSH PRN PRN Heparin Heparin Sodium (Porcine) 5,000 unit 01/27/17 03:04 Heparin - IVPUSH PRN PRN Heparin Amiodarone HCl 450 mg/ 250 mls @ 16.66 mls/hr 01/26/17 19:00 01/26/17 21:20 Dextrose IVPB 0.5 mg/min TITR BOB 16.66 mls/hr Protocol Titration 0.5 MG/MIN Heparin Sodium/Dextrose 25,000 units in 500 mls @ 20 mls/hr 01/27/17 03:15 03:15 Heparin Infusion - IVPB 1,000 units/hr TITR BOB 20 mls/hr Protocol Administration 1,000 UNITS/HR Influenza Virus Vaccine Quadrival 60 mcg 01/27/17 09:00 Flulaval Quad [id number] IM 01/27/17 09:01 .ONCE ONE Metoprolol Succinate 75 mg 01/27/17 10:00 Toprol Xl - PO DAILY [facility] Mupirocin 1 applic 01/27/17 10:00 Bactroban Ointment (For Decolonization) - NS 02/01/17 09:59 BID [facility] Pneumococcal Polyvalent Vaccine 0.5 ml 01/27/17 09:00 Pneumovax - IM 01/27/17 09:01 .ONCE ONE Home Medications Medication Instructions Recorded Aspirin [ASA -] 81 mg PO DAILY 01/26/17 Atorvastatin Ca [Lipitor] 40 mg PO DAILY 01/26/17 Enalapril Maleate 5 mg PO DAILY 01/26/17 Fluticasone/Salmeterol [Advair 1 each IH DAILY 01/26/17 250-50 Diskus] Metoprolol Succinate [Toprol Xl -] 50 mg PO DAILY 01/26/17 [place]-3S/Dha/Epa/Fish Oil [Fish 1 each PO DAILY 01/26/17 Oil 1,200 mg Softgel] CXR: No acute pathology HOSPITAL COURSE: Date of Admission:01/26/17 Date of Discharge: 01/27/17 Patient is stable on Amnio. drip stayed Normal sinus rhythm through out the day. Patient is a 46 y/o male with extensive cardiac hx s/p stent placement at the age of 36, family history of dyslipdemia, and HTN, presented to the hospital complaining of having palpitation. Patient stated that he felt the palpitations after he left a game in the city and continued to have palpitations, came to ED for further treatment and evaluation.Patient was given Amiodarone 300mg without any resolution of the VT, then patient received 100mg of IV lidocaine that eventually terminated the tachycardia. Presented with ECG showed wide complex ventricular tachycardia with AV dissociation, repeat EKG NSR. # s/p Wide complex Tachycardia: in ICU , on amiodarone drip at 0.5mg/kg/hr ( according to cardiology) , continue statin , continue increased dose metoprolol succinate xl to 75mg daily, cardio consult appreciated and discussed with , continue to to keep the defibrilator pads, patient is arranged to be transferred to [facility]. 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 today , with possibility of EP studies . On Heparin drip continue. dr. Melara arranged the Transfer at [facility] and spoke with Dr. Josué Rose of [facility]. And [facility] [place] # Possible NTEMI /possible due to demand ischemia ; troponin 0.9--> 2.79-->4.6 on Heparin drip continue. aspirin, lipitor, check lipid panel. # Hx of CAD s/p PCI/stent to LAD # HTN continue meds Metoprolol and Enalapril #hx of HLD continue Lipitor Minutes to complete discharge: 35 Discharge Summary Reason For Visit: VENTRICULAR TACHYCARDIA Condition: Critical - Instructions Disposition: TRANSFER ACUTE CARE/OTHER HOSP - Home Medications Comprehensive Discharge Medication List: Ambulatory Orders Aspirin [ASA -] 81 mg PO DAILY 01/26/17 Atorvastatin Ca [Lipitor] 40 mg PO DAILY 01/26/17 Enalapril Maleate 5 mg PO DAILY 01/26/17 Fluticasone/Salmeterol [Advair 250-50 Diskus] 1 each IH DAILY 01/26/17 Metoprolol Succinate [Toprol Xl -] 50 mg PO DAILY 01/26/17 [place]-3S/Dha/Epa/Fish Oil [Fish Oil 1,200 mg Softgel] 1 each PO DAILY 01/26/17 This patient is new to me today: Yes Date on this admission: 01/28/17 Emergency Visit: Yes ED Registration Date: 01/26/17 Care time: The patient presented to the Emergency Department on the above date and was hospitalized for further evaluation of their emergent condition. Critical Care patient: Yes Total Critical Care Time (in minutes): 35 Critical Care Statement: The care of this patient involved high complexity decision making to prevent further life threatening deterioration of the patient 's condition and/or to evaluate & treat vital organ system(s) failure or risk of failure. - Discharge Referral Referred to [facility] Med [facility].: No
--- NOTE | 2017-01-29 23:02 | EKG ---
Test Reason : Blood Pressure : / mmHG Vent. Rate : 070 BPM Atrial Rate : 070 BPM P-R Int : 190 ms QRS Dur : 106 ms QT Int : 430 ms P-R-T Axes : 053 -26 -03 degrees QTc Int : 464 ms NORMAL SINUS RHYTHM POSSIBLE LEFT ATRIAL ENLARGEMENT LATERAL INFARCT (CITED ON OR BEFORE 26-JAN-2017) INFERIOR INFARCT (CITED ON OR BEFORE 26-JAN-2017) ABNORMAL ECG WHEN COMPARED WITH ECG OF 27-JAN-2017 02:34, NO SIGNIFICANT CHANGE WAS FOUND Confirmed by SONAL HUYNH MD ([id number]) on 01/29/2017 11:02:31 PM Referred By: Confirmed By:SONAL HUYNH MD
--- NOTE | 2017-01-29 23:03 | EKG ---
Test Reason : Blood Pressure : / mmHG Vent. Rate : 066 BPM Atrial Rate : 066 BPM P-R Int : 184 ms QRS Dur : 104 ms QT Int : 420 ms P-R-T Axes : 045 -13 013 degrees QTc Int : 440 ms NORMAL SINUS RHYTHM POSSIBLE LEFT ATRIAL ENLARGEMENT LOW VOLTAGE QRS INFERIOR INFARCT , AGE UNDETERMINED ANTEROLATERAL INFARCT , AGE UNDETERMINED ABNORMAL ECG WHEN COMPARED WITH ECG OF 26-JAN-2017 17:51, NO SIGNIFICANT CHANGE WAS FOUND Confirmed by SONAL HUYNH MD ([id number]) on 01/29/2017 11:03:33 PM Referred By: CRISELDA Confirmed By:SONAL HUYNH MD
--- NOTE | 2017-01-29 23:08 | EKG ---
Test Reason : Blood Pressure : / mmHG Vent. Rate : 208 BPM Atrial Rate : 052 BPM P-R Int : 000 ms QRS Dur : 228 ms QT Int : 318 ms P-R-T Axes : 000 163 143 degrees QTc Int : 592 ms WIDE QRS TACHYCARDIA , SUSPECT VENTRICULAR TACHYCARDIA RIGHT BUNDLE BRANCH BLOCK , PLUS RIGHT VENTRICULAR HYPERTROPHY ABNORMAL ECG NO PREVIOUS ECGS AVAILABLE Confirmed by SONAL HUYNH MD ([id number]) on 01/29/2017 11:08:07 PM Referred By: Confirmed By:SONAL HUYNH MD
--- NOTE | 2017-02-01 13:07 | EKG ---
Test Reason : Blood Pressure : / mmHG Vent. Rate : 076 BPM Atrial Rate : 076 BPM P-R Int : 168 ms QRS Dur : 098 ms QT Int : 364 ms P-R-T Axes : 032 -20 004 degrees QTc Int : 409 ms NORMAL SINUS RHYTHM POSSIBLE LEFT ATRIAL ENLARGEMENT LATERAL INFARCT , AGE UNDETERMINED INFERIOR INFARCT , AGE UNDETERMINED ABNORMAL ECG WHEN COMPARED WITH ECG OF 26-JAN-2017 17:51, SINUS RHYTHM HAS REPLACED WIDE QRS TACHYCARDIA VENT. RATE HAS DECREASED BY 132 BPM Confirmed by MARYA PARR MD ([id number]) on 02/01/2017 1:07:00 PM Referred By: Confirmed By:MARYA PARR MD
== END 2017-01-27 18:31 | disposition short-term general hospital (02) | DRG 281 ==
LOC: JER 17:45 → JERBED 21:20 → JICU 01-27 02:20
PROVIDERS: ADMIT Internal Medicine; ATTEND Internal Medicine
DX: I24.9 Acute ischemic heart disease, unspecified (principal); I21.A1 Myocardial infarction type 2; I47.2 Ventricular tachycardia; I47.1 Supraventricular tachycardia; R07.89 Other chest pain; R00.2 Palpitations; I25.10 Atherosclerotic heart disease of native coronary artery without angina pectoris; I48.0 Paroxysmal atrial fibrillation; Z95.5 Presence of coronary angioplasty implant and graft; E78.00 Pure hypercholesterolemia, unspecified; I25.2 Old myocardial infarction; J45.909 Unspecified asthma, uncomplicated
CPT/HCPCS: 36415; 71010-TC; 80053; 80061; 82550; 82553; 83036; 83721; 83735; 83880; 84100; 84443; 84484; 85025; 85610; 85730; 90688; 90732; 93005; 93010; 99285-25; G0008; G0009; J1644

== ENCOUNTER 2019-09-20 22:52 | Emergency (ER) | payer BC, OTHER ==
--- NOTE | 2019-09-20 22:59 | PDOC ---
Rapid Medical Evaluation Time Seen by Provider: 09/20/19 22:54 Medical Evaluation: Allergies Allergy/AdvReac Type Severity Reaction Status Date / Time No Known Allergies Allergy Verified 01/26/17 17:51 09/20/19 22:54 I have performed a brief in-person evaluation of this patient. The patient presents with a chief complaint of: Has AICD (whoplusyou) in place and had on and off palpitations today, getting worse. States AICD did not fire. Denies SOB, diaphoresis, n/v. H/o CAD, MIs, ablation x 1, stent x 1. Cards is Dr Crum at [facility] Pertinent physical exam findings:appears anxious I have ordered the following:ekg/cxr/labs The patient will proceed to the ED for further evaluation. Discharge Disposition - Diagnosis Palpitation - Referrals - Patient Instructions - Post Discharge Activity
[2019-09-20 23:00] VITALS: TEMP 97.4; BMI 27.0
--- NOTE | 2019-09-20 23:47 | PDOC ---
History of Present Illness <Mima Hwang - Last Filed: 09/20/19 23:50> - History of Present Illness Initial Comments: 09/21/19 01:35 HPI: This is a 49 y/o male patient with a PMH significant for previous CO s/p stent, Vtach, AICD, HTN, and HLD presented to the ED because of palpitations. He was laying in bed this evening when he said he felt a few episodes of palpitations as well as his AICD pacing. He described it as a tap in his chest, and said that his AICD has fired once before and it felt like he was thrown across the room. He denied any accompanying chest pain, SOB, diaphoresis, nausea or vomiting. ROS: GENERAL/CONSTITUTIONAL: No fever/chills. No weakness. HEAD, EYES, EARS, NOSE AND THROAT: No change in vision. No sore throat. CARDIOVASCULAR: No chest pain or shortness of breath. RESPIRATORY: No cough, wheezing, or hemoptysis. GASTROINTESTINAL: No nausea, vomiting GENITOURINARY: No dysuria, or change in urination. MUSCULOSKELETAL: No joint or muscle swelling or pain. No neck or back pain. NEUROLOGIC: No headache, loss of consciousness, or change in strength/sensation. HEMATOLOGIC/LYMPHATIC: No anemia, easy bleeding, or history of blood clots. PMH: CO s/p stent, asthma, AICD, Afib, HTN, HLD PSx: Social Hx: Denied hx tobacco, drugs, etoh Meds: Albuterol, Enalapril, Atorvastatin, Metoprolol, Eliquis, ASA Allergies: Denied PCP: Anson Fox Cardiology: Gideon Roberts Electrophysiology: Radames PE: GENERAL: Awake, alert, and fully oriented, in no acute distress. Patient was laying comfortably in bed, conversing normally. HEAD: No signs of trauma EYES: PERRLA, EOMI ENT: Hearing grossly normal Moist mucosa NECK: Normal ROM, no JVD, or masses LUNGS: Breath sounds equal, clear to auscultation bilaterally. No wheezes, and no crackles HEART: Regular rate and rhythm, normal S1 and S2, no murmurs, rubs or gallops ABDOMEN: Soft, nontender, normoactive bowel sounds. No guarding, no rebound. No masses EXTREMITIES: Normal range of motion, no edema. No clubbing or cyanosis. NEUROLOGICAL: Cranial nerves II through XII grossly intact. Normal speech, normal gait. MDM: This is a 49 y/o male patient with a PMH significant for previous CO s/p stent, Vtach, AICD, HTN, and HLD presented to the ED because of palpitations. He also described feeling as though his AICD was pacing him. r/o CO, ACS, arrhythmia - CBC - CMP - Troponin - CXR - Interrogate AICD CBC WBC 5.6 K/mm3 (4.0-10.0) 09/20/19 23:40 RBC 4.18 M/mm3 (4.00-5.60) 09/20/19 23:40 Hgb 13.8 GM/dL (11.7-16.9) 09/20/19 23:40 Hct 40.0 % (35.4-49) 09/20/19 23:40 MCV 95.7 fl (80-96) 09/20/19 23:40 MCH 33.0 pg (25.7-33.7) 09/20/19 23:40 MCHC 34.4 g/dl (32.0-35.9) 09/20/19 23:40 RDW 12.8 % (11.9-15.9) 09/20/19 23:40 Plt Count 154 K/MM3 (134-434) D 09/20/19 23:40 MPV 8.8 fl (7.5-11.1) 09/20/19 23:40 Absolute Neuts (auto) 4.0 K/mm3 (1.5-8.0) 09/20/19 23:40 Neutrophils % 71.6 % (42.8-82.8) 09/20/19 23:40 Lymphocytes % 16.6 % (8-40) 09/20/19 23:40 Monocytes % 8.7 % (3.8-10.2) 09/20/19 23:40 Eosinophils % 2.4 % (0-4.5) D 09/20/19 23:40 Basophils % 0.7 % (0-2.0) 09/20/19 23:40 Nucleated RBC % 0 % (0-0) 09/20/19 23:40 No leukocytosis, no anemia CMP Sodium 139 mmol/L (136-145) 09/20/19 23:40 Potassium 4.2 mmol/L (3.5-5.1) 09/20/19 23:40 Chloride 105 mmol/L (98-107) 09/20/19 23:40 Carbon Dioxide 28 mmol/L (21-32) 09/20/19 23:40 Anion Gap 6 MMOL/L (8-16) L 09/20/19 23:40 BUN 20.8 mg/dL (7-18) H 09/20/19 23:40 Creatinine 0.9 mg/dL (0.55-1.3) 09/20/19 23:40 Est GFR (CKD-EPI)AfAm 115.02 09/20/19 23:40 Est GFR (CKD-EPI)NonAf 99.24 09/20/19 23:40 Random Glucose 121 mg/dL (74-106) H 09/20/19 23:40 Calcium 8.5 mg/dL (8.5-10.1) 09/20/19 23:40 Total Bilirubin 0.6 mg/dL (0.2-1) 09/20/19 23:40 AST 33 U/L (15-37) 09/20/19 23:40 ALT 56 U/L (13-61) 09/20/19 23:40 Alkaline Phosphatase 81 U/L (45-117) 09/20/19 23:40 Creatine Kinase 126 U/L (26-308) 09/20/19 23:40 Troponin I < 0.02 ng/ml (0.00-0.05) 09/20/19 23:40 Total Protein 6.8 g/dl (6.4-8.2) 09/20/19 23:40 Albumin 3.8 g/dl (3.4-5.0) 09/20/19 23:40 Electrolytes WNL. Negative troponin. AICD showed three episodes of Vtach with atrial pacing and termination of the VT. Patient has remained asymptomatic during his visit. Troponin is negative. AICD is working. Call was put out to his tombstone setter, Dr. Crum. Patient understands that he needs to see his tombstone setter Sunday or Sunday, and to return if he becomes symptomatic. <Sue Tiwari - Last Filed: 09/21/19 01:57> - General Chief Complaint: Palpitations Stated Complaint: IRRATIC HEART BEAT Time Seen by Provider: 09/20/19 22:54 Past History <Mima Hwang - Last Filed: 09/20/19 23:50> - Medical History Cardiac Disorders: Yes (CO) COPD: No HTN: Yes Hypercholesterolemia: Yes - Surgical History Cardiac Surgery: Yes (ablation, stent,AICD) - Psycho-Social/Smoking History Smoking History: Never smoked Have you smoked in the past 12 months: No - Substance Abuse Hx (Audit-C & DAST Scrn) How often the patient has a drink containing alcohol: Never Score: In Men: 4 or > Positive; In Women: 3 or > Positive: 0 Screen Result (Pos requires Nsg. Audit-10AR): Negative In the last yr the pt used illegal drug/Rx for NonMed reason: No Score: Yes response is considered Positive: 0 Screen Result (Positive result requires Nsg. DAST-10): Negative <Sue Tiwari - Last Filed: 09/21/19 01:57> - Medical History Allergies/Adverse Reactions: Allergies Allergy/AdvReac Type Severity Reaction Status Date / Time No Known Allergies Allergy Verified 01/26/17 17:51 Home Medications: Ambulatory Orders Aspirin [ASA -] 81 mg PO DAILY 01/26/17 Atorvastatin Ca [Lipitor] 40 mg PO DAILY 01/26/17 Enalapril Maleate 5 mg PO DAILY 01/26/17 Fluticasone/Salmeterol [Advair 250-50 Diskus] 1 each IH DAILY 01/26/17 Metoprolol Succinate [Toprol Xl -] 50 mg PO DAILY 01/26/17 [place]-3S/Dha/Epa/Fish Oil [Fish Oil 1,200 mg Softgel] 1 each PO DAILY 01/26/17 *Physical Exam - Vital Signs Last Vital Signs Temp Pulse Resp BP Pulse Ox 97.4 F L 78 78 H 152/84 98 09/20/19 22:57 09/20/19 22:57 09/20/19 22:57 09/20/19 22:57 09/20/19 22:57 <Mima Hwang - Last Filed: 09/20/19 23:50> - Vital Signs Last Vital Signs Temp Pulse Resp BP Pulse Ox 97.4 F L 78 78 H 152/84 98 09/20/19 22:57 09/20/19 22:57 09/20/19 22:57 09/20/19 22:57 09/20/19 22:57 <Sue Tiwari - Last Filed: 09/21/19 01:57> Heart Score/ECG Review - History History: Slightly suspicious - Electrocardiogram EKG: Non specific repolarization disturbance - Age Age: 45-65 - Risk Factors Risk Factors Heart Score: Yes Hx Hypercholesterolemia, Yes Hx Hypertension Based on the list above the patient has:: 1-2 risk factors - Troponin Troponin: </= normal limit - Score Heart Score - Total: 3 - ECG Intrepretation Comment:: 09/21/19 01:52 EKG showed sinus rhythm with occasional premature ventricular complexes. Left axis deviation. Inferior-posterior infarct, age undetermined Vent rate 80 bpm, CO interval 182ms, QRS duration 104ms, QT/QTc 398/459 <Sue Twiari - Last Filed: 09/21/19 01:57> ED Treatment Course - LABORATORY CBC & Chemistry Diagram: 09/20/19 23:40 09/20/19 23:40 <Sue Tiwari - Last Filed: 09/21/19 01:57> Discharge <Mima Hwang - Last Filed: 09/20/19 23:50> - Discharge Information Problems reviewed: Yes - Admission No <Sue Tiwari - Last Filed: 09/21/19 01:57> - Discharge Information Clinical Impression/Diagnosis: Palpitation, Presence of cardiac pacemaker, AICD discharge Condition: Stable Disposition: HOME - Patient Discharge Instructions Patient Printed Discharge Instructions: DI for Palpitations Additional Instructions: You were seen in the Emergency Department today for palpitations. You were evaluated with a physical examination, labs, and your AICD was interrogated. Your blood tests did not show any abnormalities. Your AICD showed that you had three episodes tonight which required pacing. Your tombstone setter was called. Please continue to take all of your medications as prescribed. Please follow-up with your tombstone setter on either Sunday or Sunday. Return to the ED with any new or concerning symptoms. Return to the ED if you have another episode, develop chest pain, shortness of breath, or nausea/vomiting.
[2019-09-21 00:08] LABS: BASO % 0.7 % (0-2.0); EOS % 2.4 % (0-4.5); HEMOGLOBIN 13.8 GM/dL (11.7-16.9); LYMPH % 16.6 % (8-40); MCHC 34.4 g/dl (32.0-35.9); MEAN CELL VOLUME 95.7 fl (80-96); MEAN PLT VOLUME 8.8 fl (7.5-11.1); MONO % 8.7 % (3.8-10.2); NEUT % 71.6 % (42.8-82.8); PLATELET COUNT 154 K/MM3 (134-434); RBC 4.18 M/mm3 (4.00-5.60); RDW 12.8 % (11.9-15.9); WHITE BLOOD COUNT 5.6 K/mm3 (4.0-10.0)
--- NOTE | 2019-09-21 00:51 | PDOC ---
Documentation entered by Keke Piper SCRIBE, acting as scribe for Mima Hwang MD. Mima Hwang MD: This documentation has been prepared by the scribeFeliz Sydney, SCRIBE, under my direction and personally reviewed by me in its entirety. I confirm that the documentation accurately reflects all work, treatment, procedures, and medical decision making performed by me. Attending Attestation - Resident Resident Name: Sue Tiwari - ED Attending Attestation I have performed the following: I have examined & evaluated the patient, The case was reviewed & discussed with the resident, I agree w/resident's findings & plan, Exceptions are as noted - HPI HPI: 09/20/19 23:47 Patient is a 49 year old male with underlying history of coronary artery disease s/p PCI/stent 13 years ago in [place], underlying history of hypertension and hypercholesterolemia. Three years ago he presented to the ER in [facility] after he sprinted at the train station to catch a train . ECG appeared either VT vs. SVT with aberrancy. He states that he may have had atrial fibrillation in the past, but he was not prescribed any anticoagulation and has remained in sinus rhythm. He had full cardiac work up with echocardiography and stress testing earlier.Pt developed elevated troponins in that hospitalization and he ended up with an AICD as a result. Pt states that AICD fired on ce in the past and he felt he was "thrown across the room" when it fired. Today no such feeling; rather he had a feeling of a tapping sensation in his chest at the AICD, and it felt like the AICD was pacing perhaps. - Physicial Exam PE: 09/21/19 00:49 GENERAL: Well-appearing, well-nourished. No apparent distress. HEENT: Normocephalic, atraumatic. PERRL, EOM intact. CARDIOVASCULAR: Normal S1, S2. Regular rate and rhythm. PULMONARY: Clear to auscultation bilaterally. ABDOMEN: Soft, non-distended, non-tender. EXTREMITIES: Normal ROM in all four extremities. No gross deformities. SKIN: Warm, dry. No rash NEUROLOGICAL: No focal neurological deficits. - Medical Decision Making 09/20/19 23:40 [place] AICD was queried. Pt is stable. Data sent. We are calling [id number] to get the report etc. Labs pending 09/20/19 23:43 Pt's CXR looks normal; AICD in good position; heart and lung agrawal normal EKG shows occasional PVCs 09/20/19 23:54 report was faxed to us but we didn't receive it yet; 2nd call placed. 09/21/19 00:49 Pt had 3 sustained Vtach episodes at 22:32, 22:33,22:39 He was atrially paced out of it all 3 times. 09/21/19 00:50 CBC is normal 09/21/19 01:21 Chem normal We will not wait for a 2nd card enzyme Pt will follow with his cardiologists at [facility]. Discharge - Discharge Information Problems reviewed: Yes Clinical Impression/Diagnosis: Palpitation, Presence of cardiac pacemaker, AICD discharge Condition: Stable Disposition: HOME - Follow up/Referral - Patient Discharge Instructions Patient Printed Discharge Instructions: DI for Palpitations Additional Instructions: You were seen in the Emergency Department today for palpitations. You were evaluated with a physical examination, labs, and your AICD was interrogated. Your blood tests did not show any abnormalities. Your AICD showed that you had three episodes tonight which required pacing. Your ophthalmic medical assistant was called. Please continue to take all of your medications as prescribed. Please follow-up with your ophthalmic medical assistant on either Sunday or Sunday. Return to the ED with any new or concerning symptoms. Return to the ED if you have another episode, develop chest pain, shortness of breath, or nausea/vomiting. - Post Discharge Activity
[2019-09-21 00:54] LABS: ALBUMIN 3.8 g/dl (3.4-5.0); ALK PHOS 81 U/L (45-117); ANION GAP 6 MMOL/L (8-16); BILIRUBIN,TOTAL 0.6 mg/dL (0.2-1); BLOOD UREA NITROGEN 20.8 mg/dL (7-18); CALCIUM 8.5 mg/dL (8.5-10.1); CHLORIDE 105 mmol/L (98-107); CO2 28 mmol/L (21-32); CREATININE 0.9 mg/dL (0.55-1.3); GLUCOSE,RANDOM 121 mg/dL (74-106); POTASSIUM 4.2 mmol/L (3.5-5.1); SGOT/AST 33 U/L (15-37); SGPT/ALT 56 U/L (13-61); SODIUM 139 mmol/L (136-145); TOT PROT 6.8 g/dl (6.4-8.2)
[2019-09-21 01:34] VITALS: BP 120/81; PULSE 63
--- NOTE | 2019-09-22 09:19 | EKG ---
Test Reason : Blood Pressure : / mmHG Vent. Rate : 080 BPM Atrial Rate : 080 BPM P-R Int : 182 ms QRS Dur : 104 ms QT Int : 398 ms P-R-T Axes : 048 -44 014 degrees QTc Int : 459 ms SINUS RHYTHM WITH OCCASIONAL PREMATURE VENTRICULAR COMPLEXES LEFT AXIS DEVIATION INFERIOR-POSTERIOR INFARCT (CITED ON OR BEFORE 26-JAN-2017) Lateral [place], age indetermined ABNORMAL ECG WHEN COMPARED WITH ECG OF 27-JAN-2017 05:31, PREMATURE VENTRICULAR COMPLEXES ARE NOW PRESENT Confirmed by Anup Dunne ([id number]) on 09/22/2019 9:18:38 AM Referred By: Confirmed By:Anup Dunne
== END 2019-09-21 01:34 | disposition home or self-care (01) ==
LOC: JER 22:52
DX: R00.2 Palpitations (principal); Z95.0 Presence of cardiac pacemaker; Z95.810 Presence of automatic (implantable) cardiac defibrillator
CPT/HCPCS: 36415; 71045-TC-FY; 80053; 82550; 84484; 85025; 93005; 93010; 99283-25

== ENCOUNTER 2021-11-07 06:55 | Emergency (ER) | payer BC ==
[2021-11-07 07:21] VITALS: BP 146/82; PULSE 66; RESP 18; TEMP 98.4; BMI 29.6
[2021-11-07] MEDS ORDERED: DIPHTH,PERTUSS(ACELL),TET 0.5 ML DISP.SYRIN IM ONE ×2 (07:35→08:08)
== END 2021-11-07 08:15 | disposition home or self-care (01) ==
LOC: JER 06:55 → JERFT 06:55
PROC: 0HQGXZZ Repair Left Hand Skin, External Approach (ICD-10-PCS; principal; 2021-11-07)
PROC: 3E0234Z Introduction of Serum, Toxoid and Vaccine into Muscle, Percutaneous Approach (ICD-10-PCS; 2021-11-07)
DX: S61.211A Laceration without foreign body of left index finger without damage to nail, initial encounter (principal); W26.0XXA Contact with knife, initial encounter; Y93.G3 Activity, cooking and baking
CPT/HCPCS: 90715; 99284-25